=== PATIENT | female | born 1960 | race Caucasian/White ===

== ENCOUNTER 2017-12-08 10:17 | Emergency (ER) | payer OTHER ==
[~2017-12-08] VITALS: Ht 160 cm; Wt 58.1 kg
[~2017-12-08 10:17] MED LIST: NABUMETONE500 MG PO; ORPH100T PO; PERCOCET 5/3251 TAB PO; ULTRACET PO; ULTRAM50 MG PO
== END 2017-12-08 13:36 | disposition home or self-care (01) ==
LOC: ER 10:17
DX: S00.83XA Contusion of other part of head, initial encounter (principal); S10.83XA Contusion of other specified part of neck, initial encounter; W18.39XA Other fall on same level, initial encounter; Y93.89 Activity, other specified; Y92.814 Boat as the place of occurrence of the external cause; Y99.8 Other external cause status

== ENCOUNTER 2019-06-30 09:56 | Emergency (ER) | payer OTHER ==
[~2019-06-30] VITALS: Ht 160 cm; Wt 67.1 kg
[2019-06-30] MEDS ORDERED: XOFLUZA40 MG PO (13:23)
[2019-06-30] MEDS ORDERED: MUCINEX1200 MG PO (13:27)
== END 2019-06-30 13:53 | disposition home or self-care (01) ==
LOC: ER 09:56
DX: B34.9 Viral infection, unspecified (principal)

== ENCOUNTER 2019-11-10 11:01 | Emergency (ER) | payer OTHER ==
[~2019-11-10] VITALS: Ht 162.6 cm; Wt 61.2 kg
[~2019-11-10 11:01] MED LIST changes: +MUCINEX1200 MG PO; +XOFLUZA40 MG PO
[2019-11-10] MEDS ORDERED: PEPCID20 MG PO (12:45)
[2019-11-10] MEDS ORDERED: VISTARIL25 MG PO (12:45)
== END 2019-11-10 13:10 | disposition home or self-care (01) ==
LOC: ER 11:01
DX: T78.1XXA Other adverse food reactions, not elsewhere classified, initial encounter (principal); R21 Rash and other nonspecific skin eruption

== ENCOUNTER 2020-09-19 15:26 | Emergency (ER) | payer OTHER ==
[~2020-09-19] VITALS: Ht 162.6 cm; Wt 74.4 kg
[~2020-09-19 15:26] MED LIST changes: +PEPCID20 MG PO; +VISTARIL25 MG PO
[2020-09-19] MEDS ORDERED: ENDOMETRIN100 MG VAG (15:39)
[2020-09-19] MEDS ORDERED: RESTORIL7.5 MG PO (15:39)
== END 2020-09-19 20:22 | disposition home or self-care (01) ==
LOC: ER 15:26
DX: S40.012A Contusion of left shoulder, initial encounter (principal); S93.401A Sprain of unspecified ligament of right ankle, initial encounter; W18.39XA Other fall on same level, initial encounter; Y93.89 Activity, other specified; Y92.89 Other specified places as the place of occurrence of the external cause; Y99.8 Other external cause status

== ENCOUNTER 2021-09-11 07:53 | Day surgery (SDC) | payer OTHER ==
[~2021-09-11 07:53] MED LIST changes: +ENDOMETRIN100 MG VAG; +RESTORIL7.5 MG PO
== END 2021-09-11 12:05 | disposition home or self-care (01) ==
LOC: CIR.AMB 07:53
PROVIDERS: ATTEND Surgery
DX: D17.1 Benign lipomatous neoplasm of skin and subcutaneous tissue of trunk (principal); Z88.2 Allergy status to sulfonamides; Z88.6 Allergy status to analgesic agent; Z88.8 Allergy status to other drugs, medicaments and biological substances; Z88.0 Allergy status to penicillin; E78.00 Pure hypercholesterolemia, unspecified; J45.909 Unspecified asthma, uncomplicated; M51.36 Other intervertebral disc degeneration, lumbar region; M19.90 Unspecified osteoarthritis, unspecified site; F41.9 Anxiety disorder, unspecified